=== PATIENT | female | born 1980 | race Two or more races ===

== ENCOUNTER 2021-09-18 12:21 | Emergency (ER) | payer SELFPAY ==
[2021-09-18 13:24] VITALS: BP 143/82; PULSE 88; TEMP 97.8; BMI 38.6
== END 2021-09-18 14:05 | disposition left against medical advice (07) ==
LOC: JER 12:21
DX: R06.02 Shortness of breath (principal)
CPT/HCPCS: 99281-25

== ENCOUNTER 2022-11-14 08:48 | Observation (INO) | payer OTHER ==
[2022-11-14 09:40] LABS: BASO % 0.9 % (0-2.0); EOS % 0.5 % (0-4.5); HEMATOCRIT 34.5 % (32.4-45.2); HEMOGLOBIN 11.1 GM/dL (10.7-15.3); LYMPH % 21.4 % (8-40); MCH 28.1 pg (25.7-33.7); MCHC 32.2 g/dl (32.0-36.0); MEAN CELL VOLUME 87.2 fl (80-96); MEAN PLT VOLUME 8.3 fl (7.5-11.1); MONO % 8.4 % (3.8-10.2); NEUT % 68.8 % (42.8-82.8); PLATELET COUNT 430 10^3/uL (134-434); RBC 3.96 M/mm3 (3.60-5.2); RDW 17.7 % (11.6-15.6)
[2022-11-14] MEDS ORDERED: ONDANSETRON *ODT* 4 MG TABLET SL ONE (09:47)
[2022-11-14 09:48] LABS: INR 1.17 (0.83-1.09); PROTHROMBIN TIME (PATIENT) 13.5 SEC (9.7-13.0)
[2022-11-14 09:50] LABS: ACTIVATED PTT 33.9 SECONDS (25.2-36.5)
[2022-11-14] MEDS ORDERED: ONDANSETRON *ODT* 4 MG TABLET ONE (09:51)
[2022-11-14 10:02] LABS: CALCIUM 8.9 mg/dL (8.5-10.1)
[2022-11-14 10:03] LABS: ALBUMIN 3.6 g/dl (3.4-5.0)
[2022-11-14 10:06] LABS: CREATININE 0.7 mg/dL (0.55-1.3)
[2022-11-14 10:08] LABS: TOT PROT 7.5 g/dl (6.4-8.2)
[2022-11-14 10:09] LABS: BILIRUBIN,TOTAL 0.5 mg/dL (0.2-1)
[2022-11-14] MEDS ORDERED: ALPRAZolam 0.25 MG TABLET PO ONE (11:19)
[2022-11-14] MEDS ORDERED: ALPRAZolam 0.25 MG TABLET ONE (11:27)
[2022-11-14 12:08] LABS: MAGNESIUM 2.3 mg/dL (1.8-2.4)
[2022-11-14 12:11] LABS: PHOSPHOROUS 2.6 mg/dL (2.5-4.9)
[2022-11-14] MEDS ORDERED: oxyCODONE HCL 5 MG TABLET ONE ×2 (14:17→14:31)
[2022-11-14] MEDS ORDERED: ENOXAPARIN NA (PORCINE) 100 MG/1 ML DISP.SYRIN SQ ONE (14:17)
[2022-11-14] MEDS: oxyCODONE HCL 5 MG TABLET PO PRN ×3 (14:23→23:08)
[2022-11-14] MEDS: ENOXAPARIN NA (PORCINE) 100 MG/1 ML DISP.SYRIN SQ SCH ×2 (14:24→22:18)
[2022-11-14 14:37] LABS: EPI CELLS 7 /uL (0-25.1); HYALINE CASTS 0 /uL (0-3.1); PH,URINE 7.5 (5.0-8.0); URINE APPEARANCE CLEAR; URINE BACTERIA 1 /uL (0-1359); URINE BILIRUBIN NEGATIVE (NEGATIVE); URINE COLOR YELLOW; URINE GLUCOSE (UA) NEGATIVE (NEGATIVE); URINE KETONE 1+ (NEGATIVE); URINE LEUK ESTERASE NEGATIVE (NEGATIVE); URINE NITRITE NEGATIVE (NEGATIVE); URINE PROTEIN TRACE (NEGATIVE); URINE RBC 576 /uL (0-23.9); URINE WBC 4 /uL (0-25.8)
[2022-11-14] MEDS ORDERED: WARFARIN NA 10 MG TABLET PO ONE (18:00)
[2022-11-14 18:43] VITALS: BMI 45.8
[2022-11-14] MEDS: GABAPENTIN 300 MG CAPSULE PO SCH ×2 (18:47→22:18)
[2022-11-14] MEDS: CYCLOBENZAPRINE HCL 10 MG TABLET (FP) PO PRN ×2 (18:48→22:18)
[2022-11-14] MEDS ORDERED: GABAPENTIN 300 MG CAPSULE PO SCH (22:00)
[2022-11-14] MEDS: ATORVASTATIN CA 40 MG TABLET (FP) PO SCH (22:18)
[2022-11-14] MEDS: ALPRAZolam 1 MG TABLET PO PRN (22:29)
[2022-11-15] MEDS: oxyCODONE HCL 5 MG TABLET PO PRN ×4 (03:39→18:41)
[2022-11-15] MEDS: GABAPENTIN 300 MG CAPSULE PO SCH ×4 (09:33→22:12)
[2022-11-15] MEDS: CYCLOBENZAPRINE HCL 10 MG TABLET (FP) PO PRN ×2 (09:42→22:12)
[2022-11-15] MEDS: ENOXAPARIN NA (PORCINE) 100 MG/1 ML DISP.SYRIN SQ SCH (10:56)
[2022-11-15] MEDS: ALPRAZolam 1 MG TABLET PO PRN (11:03)
[2022-11-15 11:10] LABS: BASO % 0.5 % (0-2.0); EOS % 2.5 % (0-4.5); HEMATOCRIT 32.1 % (32.4-45.2); HEMOGLOBIN 10.6 GM/dL (10.7-15.3); LYMPH % 21.5 % (8-40); MCH 28.7 pg (25.7-33.7); MCHC 33.1 g/dl (32.0-36.0); MEAN CELL VOLUME 86.7 fl (80-96); MEAN PLT VOLUME 8.3 fl (7.5-11.1); MONO % 7.7 % (3.8-10.2); NEUT % 67.8 % (42.8-82.8); PLATELET COUNT 385 10^3/uL (134-434); RDW 17.8 % (11.6-15.6)
[2022-11-15 11:29] LABS: CALCIUM 8.6 mg/dL (8.5-10.1)
[2022-11-15 11:30] LABS: BLOOD UREA NITROGEN 10.5 mg/dL (7-18)
[2022-11-15 11:33] LABS: CREATININE 0.8 mg/dL (0.55-1.3)
[2022-11-15] MEDS ORDERED: ENOXAPARIN NA (PORCINE) 100 MG/1 ML DISP.SYRIN SQ SCH (18:27)
[2022-11-15] MEDS ORDERED: WARFARIN NA 5 MG TABLET PO ONE (18:27)
[2022-11-15] MEDS: ATORVASTATIN CA 40 MG TABLET (FP) PO SCH (22:11)
[2022-11-15] MEDS: ENOXAPARIN NA (PORCINE) 120 MG/0.8 ML DISP.SYRIN SQ SCH (22:13)
[2022-11-16] MEDS: oxyCODONE HCL 5 MG TABLET PO PRN ×4 (05:32→21:01)
[2022-11-16] MEDS: CYCLOBENZAPRINE HCL 10 MG TABLET (FP) PO PRN ×3 (05:32→21:03)
[2022-11-16] MEDS ORDERED: DEXTROSE 50%-WATER 25 GM/50 ML DISP.SYRIN ONE (10:07)
[2022-11-16] MEDS ORDERED: DEXTROSE 50%-WATER - 25 GM/50 ML VIAL IVPUSH ONE (10:32)
[2022-11-16] MEDS ORDERED: DEXTROSE 50%-WATER 25 GM/50 ML DISP.SYRIN IVPUSH ONE (10:37)
[2022-11-16] MEDS ORDERED: DEXTROSE 50%-WATER 25 GM/50 ML DISP.SYRIN IVPUSH PRN (10:43)
[2022-11-16] MEDS: GABAPENTIN 300 MG CAPSULE PO SCH ×4 (11:03→21:03)
[2022-11-16] MEDS: ENOXAPARIN NA (PORCINE) 120 MG/0.8 ML DISP.SYRIN SQ SCH ×2 (11:03→21:03)
[2022-11-16 11:38] LABS: HEMATOCRIT 31.8 % (32.4-45.2); HEMOGLOBIN 10.5 GM/dL (10.7-15.3); MCH 28.8 pg (25.7-33.7); MCHC 32.9 g/dl (32.0-36.0); MEAN CELL VOLUME 87.6 fl (80-96); MEAN PLT VOLUME 8.6 fl (7.5-11.1); PLATELET COUNT 372 10^3/uL (134-434); RBC 3.63 M/mm3 (3.60-5.2); RDW 17.2 % (11.6-15.6); WHITE BLOOD COUNT 7.4 K/mm3 (4.0-10.0)
[2022-11-16 11:45] LABS: INR 1.14 (0.83-1.09); PROTHROMBIN TIME (PATIENT) 13.2 SEC (9.7-13.0)
[2022-11-16 11:48] LABS: ACTIVATED PTT 36.4 SECONDS (25.2-36.5)
[2022-11-16 12:07] LABS: ALBUMIN 3.1 g/dl (3.4-5.0); BLOOD UREA NITROGEN 11.7 mg/dL (7-18)
[2022-11-16 12:08] LABS: CALCIUM 8.2 mg/dL (8.5-10.1)
[2022-11-16 12:09] LABS: CREATININE 0.7 mg/dL (0.55-1.3)
[2022-11-16 12:11] LABS: BILIRUBIN,TOTAL 0.2 mg/dL (0.2-1); TOT PROT 6.4 g/dl (6.4-8.2)
[2022-11-16] MEDS: ALPRAZolam 1 MG TABLET PO PRN (13:42)
[2022-11-16] MEDS: ATORVASTATIN CA 40 MG TABLET (FP) PO SCH (21:04)
[2022-11-17] MEDS: oxyCODONE HCL 5 MG TABLET PO PRN ×3 (01:15→18:30)
[2022-11-17] MEDS: GABAPENTIN 300 MG CAPSULE PO SCH ×4 (09:48→21:39)
[2022-11-17] MEDS: ENOXAPARIN NA (PORCINE) 120 MG/0.8 ML DISP.SYRIN SQ SCH ×2 (09:48→21:38)
[2022-11-17] MEDS: CYCLOBENZAPRINE HCL 10 MG TABLET (FP) PO PRN ×3 (09:52→23:00)
[2022-11-17] MEDS: ALPRAZolam 1 MG TABLET PO PRN (09:59)
[2022-11-17] MEDS: SENNOSIDES/DOCUSATE COMBO (SENNA PLUS) TABLET (UD) PO SCH ×2 (10:16→21:39)
[2022-11-17] MEDS ORDERED: oxyCODONE HCL 5 MG TABLET PO PRN ×2 (11:32→13:35)
[2022-11-17 11:43] LABS: HEMATOCRIT 33.1 % (32.4-45.2); HEMOGLOBIN 10.8 GM/dL (10.7-15.3); MCH 28.5 pg (25.7-33.7); MCHC 32.6 g/dl (32.0-36.0); MEAN CELL VOLUME 87.4 fl (80-96); MEAN PLT VOLUME 9.3 fl (7.5-11.1); PLATELET COUNT 328 10^3/uL (134-434); RBC 3.79 M/mm3 (3.60-5.2); RDW 16.9 % (11.6-15.6); WHITE BLOOD COUNT 6.4 K/mm3 (4.0-10.0)
[2022-11-17 12:07] LABS: ALBUMIN 3.1 g/dl (3.4-5.0); BLOOD UREA NITROGEN 11.1 mg/dL (7-18)
[2022-11-17 12:10] LABS: CREATININE 0.7 mg/dL (0.55-1.3)
[2022-11-17 12:11] LABS: BILIRUBIN,TOTAL 0.2 mg/dL (0.2-1); TOT PROT 6.2 g/dl (6.4-8.2)
[2022-11-17] MEDS: ATORVASTATIN CA 40 MG TABLET (FP) PO SCH (21:38)
[2022-11-18] MEDS: INSULIN SLIDING SCALE (NOVOLOG) 1 VIAL SQ SCH ×3 (07:05→16:29)
[2022-11-18] MEDS: oxyCODONE HCL 5 MG TABLET PO PRN ×3 (07:40→22:16)
[2022-11-18] MEDS: CYCLOBENZAPRINE HCL 10 MG TABLET (FP) PO PRN ×2 (07:44→17:33)
[2022-11-18] MEDS: GABAPENTIN 300 MG CAPSULE PO SCH ×4 (09:24→22:09)
[2022-11-18] MEDS: ENOXAPARIN NA (PORCINE) 120 MG/0.8 ML DISP.SYRIN SQ SCH ×2 (09:24→22:09)
[2022-11-18] MEDS: SENNOSIDES/DOCUSATE COMBO (SENNA PLUS) TABLET (UD) PO SCH ×2 (09:26→22:09)
[2022-11-18 12:03] LABS: INR 1.17 (0.83-1.09); PROTHROMBIN TIME (PATIENT) 13.5 SEC (9.7-13.0)
[2022-11-18] MEDS: ALPRAZolam 1 MG TABLET PO PRN (12:27)
[2022-11-18] MEDS ORDERED: ONDANSETRON 4 MG/2 ML VIAL IVPUSH ONE (16:26)
[2022-11-18] MEDS: ATORVASTATIN CA 40 MG TABLET (FP) PO SCH (22:09)
[2022-11-19] MEDS: oxyCODONE HCL 5 MG TABLET PO PRN ×4 (04:29→21:46)
[2022-11-19] MEDS: CYCLOBENZAPRINE HCL 10 MG TABLET (FP) PO PRN (04:29)
[2022-11-19] MEDS: INSULIN SLIDING SCALE (NOVOLOG) 1 VIAL SQ SCH ×3 (06:49→16:44)
[2022-11-19] MEDS: GABAPENTIN 300 MG CAPSULE PO SCH ×3 (11:19→21:43)
[2022-11-19] MEDS: ALPRAZolam 1 MG TABLET PO PRN (11:19)
[2022-11-19] MEDS: ENOXAPARIN NA (PORCINE) 120 MG/0.8 ML DISP.SYRIN SQ SCH ×2 (11:19→21:44)
[2022-11-19] MEDS: SENNOSIDES/DOCUSATE COMBO (SENNA PLUS) TABLET (UD) PO SCH ×2 (11:20→21:44)
[2022-11-19 12:26] LABS: BASO % 0.8 % (0-2.0); EOS % 4.8 % (0-4.5); HEMATOCRIT 37.1 % (32.4-45.2); HEMOGLOBIN 12.1 GM/dL (10.7-15.3); LYMPH % 31.7 % (8-40); MCH 28.4 pg (25.7-33.7); MCHC 32.7 g/dl (32.0-36.0); MEAN CELL VOLUME 86.8 fl (80-96); MEAN PLT VOLUME 9.1 fl (7.5-11.1); MONO % 3.1 % (3.8-10.2); NEUT % 59.6 % (42.8-82.8); PLATELET COUNT 424 10^3/uL (134-434); RBC 4.27 M/mm3 (3.60-5.2); WHITE BLOOD COUNT 6.2 K/mm3 (4.0-10.0)
[2022-11-19 12:52] LABS: ALBUMIN 3.8 g/dl (3.4-5.0); BLOOD UREA NITROGEN 15.2 mg/dL (7-18); MAGNESIUM 2.3 mg/dL (1.8-2.4)
[2022-11-19 12:55] LABS: CREATININE 0.8 mg/dL (0.55-1.3); PHOSPHOROUS 3.9 mg/dL (2.5-4.9)
[2022-11-19 12:56] LABS: BILIRUBIN,TOTAL 0.2 mg/dL (0.2-1); TOT PROT 7.6 g/dl (6.4-8.2)
[2022-11-19] MEDS ORDERED: oxyCODONE HCL 5 MG TABLET PO PRN (17:28)
[2022-11-19] MEDS ORDERED: ALPRAZolam 1 MG TABLET PO PRN (17:28)
[2022-11-19] MEDS ORDERED: CYCLOBENZAPRINE HCL 10 MG TABLET (FP) PO PRN (17:28)
[2022-11-19] MEDS ORDERED: DEXTROSE 50%-WATER 25 GM/50 ML DISP.SYRIN IVPUSH PRN ×2 (17:28→19:48)
[2022-11-19] MEDS ORDERED: GABAPENTIN 300 MG CAPSULE PO SCH (18:00)
[2022-11-19] MEDS: ATORVASTATIN CA 40 MG TABLET (FP) PO SCH (21:44)
[2022-11-19] MEDS ORDERED: ENOXAPARIN NA (PORCINE) 120 MG/0.8 ML DISP.SYRIN SQ SCH (22:00)
[2022-11-19] MEDS ORDERED: ATORVASTATIN CA 40 MG TABLET (FP) PO SCH (22:00)
[2022-11-19] MEDS ORDERED: SENNOSIDES/DOCUSATE COMBO (SENNA PLUS) TABLET (UD) PO SCH (22:00)
[2022-11-20] MEDS: CYCLOBENZAPRINE HCL 10 MG TABLET (FP) PO PRN ×3 (06:06→22:21)
[2022-11-20] MEDS: oxyCODONE HCL 5 MG TABLET PO PRN ×4 (06:09→22:21)
[2022-11-20] MEDS: INSULIN SLIDING SCALE (NOVOLOG) 1 VIAL SQ SCH ×3 (06:10→16:29)
[2022-11-20] MEDS ORDERED: INSULIN SLIDING SCALE (NOVOLOG) 1 VIAL SQ SCH (07:00)
[2022-11-20] MEDS: GABAPENTIN 300 MG CAPSULE PO SCH ×4 (09:13→22:22)
[2022-11-20] MEDS: ALPRAZolam 1 MG TABLET PO PRN (09:16)
[2022-11-20] MEDS: ENOXAPARIN NA (PORCINE) 120 MG/0.8 ML DISP.SYRIN SQ SCH (09:18)
[2022-11-20] MEDS: SENNOSIDES/DOCUSATE COMBO (SENNA PLUS) TABLET (UD) PO SCH ×2 (09:20→22:22)
[2022-11-20] MEDS ORDERED: ONDANSETRON 4 MG/2 ML VIAL IVPUSH ONE (11:31)
[2022-11-20] MEDS: WARFARIN NA 7.5 MG TABLET PO SCH (22:20)
[2022-11-20] MEDS: ATORVASTATIN CA 40 MG TABLET (FP) PO SCH (22:21)
[2022-11-21] MEDS: oxyCODONE HCL 5 MG TABLET PO PRN ×2 (02:52→09:11)
[2022-11-21] MEDS: INSULIN SLIDING SCALE (NOVOLOG) 1 VIAL SQ SCH ×3 (06:30→17:47)
[2022-11-21] MEDS: GABAPENTIN 300 MG CAPSULE PO SCH ×4 (09:12→21:16)
[2022-11-21] MEDS: CYCLOBENZAPRINE HCL 10 MG TABLET (FP) PO PRN ×3 (09:15→21:19)
[2022-11-21 09:37] LABS: HEMATOCRIT 35.7 % (32.4-45.2); HEMOGLOBIN 11.5 GM/dL (10.7-15.3); MCHC 32.2 g/dl (32.0-36.0); MEAN PLT VOLUME 8.9 fl (7.5-11.1); PLATELET COUNT 382 10^3/uL (134-434); RDW 16.6 % (11.6-15.6); WHITE BLOOD COUNT 6.9 K/mm3 (4.0-10.0)
[2022-11-21 09:49] LABS: INR 1.09 (0.83-1.09); PROTHROMBIN TIME (PATIENT) 12.6 SEC (9.7-13.0)
[2022-11-21 10:26] LABS: CALCIUM 9.1 mg/dL (8.5-10.1)
[2022-11-21 10:27] LABS: ALBUMIN 3.5 g/dl (3.4-5.0); BLOOD UREA NITROGEN 11.6 mg/dL (7-18)
[2022-11-21 10:29] LABS: CREATININE 0.8 mg/dL (0.55-1.3)
[2022-11-21 10:32] LABS: BILIRUBIN,TOTAL 0.2 mg/dL (0.2-1); TOT PROT 6.9 g/dl (6.4-8.2)
[2022-11-21] MEDS: ALPRAZolam 1 MG TABLET PO PRN (10:47)
[2022-11-21] MEDS: SENNOSIDES/DOCUSATE COMBO (SENNA PLUS) TABLET (UD) PO SCH (11:15)
[2022-11-21] MEDS: WARFARIN NA 7.5 MG TABLET PO SCH (21:00)
[2022-11-22] MEDS: ATORVASTATIN CA 40 MG TABLET (FP) PO SCH ×2 (00:44→23:04)
[2022-11-22] MEDS: SENNOSIDES/DOCUSATE COMBO (SENNA PLUS) TABLET (UD) PO SCH ×3 (00:44→23:08)
[2022-11-22] MEDS: oxyCODONE HCL 5 MG TABLET PO PRN ×5 (01:05→23:21)
[2022-11-22] MEDS: CYCLOBENZAPRINE HCL 10 MG TABLET (FP) PO PRN ×2 (05:52→23:05)
[2022-11-22] MEDS: INSULIN SLIDING SCALE (NOVOLOG) 1 VIAL SQ SCH ×3 (07:31→16:35)
[2022-11-22] MEDS: GABAPENTIN 300 MG CAPSULE PO SCH ×4 (09:53→23:05)
[2022-11-22] MEDS: ALPRAZolam 1 MG TABLET PO PRN (13:06)
[2022-11-22] MEDS ORDERED: WARFARIN NA 10 MG TABLET PO ONE (18:00)
[2022-11-22] MEDS ORDERED: WARFARIN NA 5 MG TABLET PO SCH (18:00)
[2022-11-22] MEDS ORDERED: WARFARIN NA 10 MG TABLET PO SCH (18:00)
[2022-11-23] MEDS ORDERED: ALPRAZolam 1 MG TABLET PO ONE (03:49)
[2022-11-23] MEDS ORDERED: ALPRAZolam 0.25 MG TABLET PO ONE (03:49)
[2022-11-23] MEDS: oxyCODONE HCL 5 MG TABLET PO PRN ×4 (03:49→21:24)
[2022-11-23] MEDS: INSULIN SLIDING SCALE (NOVOLOG) 1 VIAL SQ SCH ×3 (07:12→16:56)
[2022-11-23] MEDS: GABAPENTIN 300 MG CAPSULE PO SCH ×4 (10:13→21:23)
[2022-11-23] MEDS: SENNOSIDES/DOCUSATE COMBO (SENNA PLUS) TABLET (UD) PO SCH ×2 (10:13→21:25)
[2022-11-23 10:36] LABS: ALBUMIN 3.6 g/dl (3.4-5.0); CALCIUM 8.9 mg/dL (8.5-10.1)
[2022-11-23 10:37] LABS: BLOOD UREA NITROGEN 13.4 mg/dL (7-18)
[2022-11-23 10:40] LABS: CREATININE 0.8 mg/dL (0.55-1.3)
[2022-11-23 10:42] LABS: BILIRUBIN,TOTAL 0.2 mg/dL (0.2-1); TOT PROT 7.1 g/dl (6.4-8.2)
[2022-11-23 10:58] LABS: HEMATOCRIT 35.3 % (32.4-45.2); HEMOGLOBIN 11.4 GM/dL (10.7-15.3); MCH 28.2 pg (25.7-33.7); MCHC 32.2 g/dl (32.0-36.0); MEAN CELL VOLUME 87.7 fl (80-96); MEAN PLT VOLUME 9.1 fl (7.5-11.1); PLATELET COUNT 348 10^3/uL (134-434); RBC 4.03 M/mm3 (3.60-5.2); RDW 16.9 % (11.6-15.6); WHITE BLOOD COUNT 6.9 K/mm3 (4.0-10.0)
[2022-11-23 12:52] LABS: INR 1.31 (0.83-1.09); PROTHROMBIN TIME (PATIENT) 15.2 SEC (9.7-13.0)
[2022-11-23] MEDS: ALPRAZolam 1 MG TABLET PO PRN (16:55)
[2022-11-23] MEDS: WARFARIN NA 5 MG TABLET PO SCH (17:00)
[2022-11-23] MEDS: CYCLOBENZAPRINE HCL 10 MG TABLET (FP) PO PRN (21:23)
[2022-11-23] MEDS: ATORVASTATIN CA 40 MG TABLET (FP) PO SCH (21:25)
[2022-11-24] MEDS: oxyCODONE HCL 5 MG TABLET PO PRN ×4 (02:18→21:42)
[2022-11-24] MEDS: INSULIN SLIDING SCALE (NOVOLOG) 1 VIAL SQ SCH ×3 (06:54→18:14)
[2022-11-24] MEDS: SENNOSIDES/DOCUSATE COMBO (SENNA PLUS) TABLET (UD) PO SCH ×3 (10:24→23:17)
[2022-11-24] MEDS: GABAPENTIN 300 MG CAPSULE PO SCH ×4 (10:24→21:43)
[2022-11-24] MEDS: ALPRAZolam 1 MG TABLET PO PRN (10:32)
[2022-11-24 12:32] LABS: BASO % 0.6 % (0-2.0); EOS % 2.8 % (0-4.5); HEMATOCRIT 34.7 % (32.4-45.2); HEMOGLOBIN 11.2 GM/dL (10.7-15.3); LYMPH % 17.6 % (8-40); MCH 27.9 pg (25.7-33.7); MCHC 32.2 g/dl (32.0-36.0); MEAN CELL VOLUME 86.7 fl (80-96); MEAN PLT VOLUME 8.9 fl (7.5-11.1); MONO % 9.8 % (3.8-10.2); NEUT % 69.2 % (42.8-82.8); PLATELET COUNT 368 10^3/uL (134-434); RBC 4.01 M/mm3 (3.60-5.2); RDW 16.4 % (11.6-15.6); WHITE BLOOD COUNT 8.5 K/mm3 (4.0-10.0)
[2022-11-24 12:36] LABS: INR 1.4 (0.83-1.09); PROTHROMBIN TIME (PATIENT) 16.2 SEC (9.7-13.0)
[2022-11-24 13:18] LABS: CALCIUM 9.5 mg/dL (8.5-10.1)
[2022-11-24 13:19] LABS: ALBUMIN 3.5 g/dl (3.4-5.0); BLOOD UREA NITROGEN 12.7 mg/dL (7-18)
[2022-11-24 13:20] LABS: CREATININE 0.7 mg/dL (0.55-1.3)
[2022-11-24 13:22] LABS: BILIRUBIN,TOTAL 0.4 mg/dL (0.2-1); TOT PROT 7.1 g/dl (6.4-8.2)
[2022-11-24] MEDS: CYCLOBENZAPRINE HCL 10 MG TABLET (FP) PO PRN (15:24)
[2022-11-24 18:06] LABS: DRVVT - 38.1 sec (0.0-47.0); HEXAGONAL PHASE PHOSPHOLIPID 6 sec (0-11)
[2022-11-24] MEDS: WARFARIN NA 5 MG TABLET PO SCH (18:14)
[2022-11-24] MEDS: ATORVASTATIN CA 40 MG TABLET (FP) PO SCH (21:43)
[2022-11-25] MEDS: CYCLOBENZAPRINE HCL 10 MG TABLET (FP) PO PRN ×2 (03:29→13:31)
[2022-11-25] MEDS: oxyCODONE HCL 5 MG TABLET PO PRN ×4 (03:31→21:59)
[2022-11-25] MEDS: ALPRAZolam 1 MG TABLET PO PRN (05:34)
[2022-11-25] MEDS: INSULIN SLIDING SCALE (NOVOLOG) 1 VIAL SQ SCH ×3 (08:09→17:27)
[2022-11-25] MEDS: GABAPENTIN 300 MG CAPSULE PO SCH ×4 (10:37→21:58)
[2022-11-25] MEDS: SENNOSIDES/DOCUSATE COMBO (SENNA PLUS) TABLET (UD) PO SCH ×2 (10:38→22:01)
[2022-11-25 11:56] LABS: INR 1.44 (0.83-1.09); PROTHROMBIN TIME (PATIENT) 16.7 SEC (9.7-13.0)
[2022-11-25] MEDS ORDERED: WARFARIN NA 7.5 MG TABLET PO SCH (18:00)
[2022-11-25] MEDS ORDERED: WARFARIN NA 10 MG TABLET PO SCH (18:00)
[2022-11-25] MEDS ORDERED: WARFARIN NA 10 MG, WARFARIN NA 2.5 MG PO SCH (18:00)
[2022-11-25] MEDS: ATORVASTATIN CA 40 MG TABLET (FP) PO SCH (21:58)
[2022-11-26] MEDS: ALPRAZolam 1 MG TABLET PO PRN (01:13)
[2022-11-26] MEDS: oxyCODONE HCL 5 MG TABLET PO PRN ×5 (05:50→21:57)
[2022-11-26] MEDS: INSULIN SLIDING SCALE (NOVOLOG) 1 VIAL SQ SCH ×2 (08:24→17:45)
[2022-11-26] MEDS: GABAPENTIN 300 MG CAPSULE PO SCH ×4 (09:46→21:57)
[2022-11-26] MEDS: SENNOSIDES/DOCUSATE COMBO (SENNA PLUS) TABLET (UD) PO SCH ×2 (09:46→21:57)
[2022-11-26] MEDS: CYCLOBENZAPRINE HCL 10 MG TABLET (FP) PO PRN (09:57)
[2022-11-26 11:53] LABS: INR 1.67 (0.83-1.09); PROTHROMBIN TIME (PATIENT) 19.3 SEC (9.7-13.0)
[2022-11-26 12:10] LABS: CHLORIDE 108 mmol/L (98-107); SODIUM 139 mmol/L (136-145)
[2022-11-26 12:11] LABS: CALCIUM 8.7 mg/dL (8.5-10.1)
[2022-11-26 12:12] LABS: ANION GAP 8 MMOL/L (8-16); CO2 23 mmol/L (21-32)
[2022-11-26 12:15] LABS: CREATININE 0.8 mg/dL (0.55-1.3)
[2022-11-26 12:38] LABS: GLUCOSE,RANDOM 41 mg/dL (74-106)
[2022-11-26] MEDS ORDERED: WARFARIN NA 2.5 MG TABLET ONE (17:42)
[2022-11-26] MEDS: WARFARIN NA 2.5 MG TABLET PO ONE ×2 (17:43→18:08)
[2022-11-26] MEDS ORDERED: WARFARIN NA 10 MG, WARFARIN NA 2.5 MG PO SCH (18:00)
[2022-11-26] MEDS: ATORVASTATIN CA 40 MG TABLET (FP) PO SCH (21:57)
[2022-11-26] MEDS: CYCLOBENZAPRINE HCL 10 MG TABLET (FP) PO SCH (21:57)
[2022-11-27] MEDS: oxyCODONE HCL 5 MG TABLET PO PRN ×3 (04:26→14:42)
[2022-11-27] MEDS: ALPRAZolam 1 MG TABLET PO PRN (06:15)
[2022-11-27] MEDS: INSULIN SLIDING SCALE (NOVOLOG) 1 VIAL SQ SCH ×2 (06:16→16:17)
[2022-11-27 08:21] VITALS: PULSE 88
[2022-11-27] MEDS: CYCLOBENZAPRINE HCL 10 MG TABLET (FP) PO SCH (10:06)
[2022-11-27] MEDS: GABAPENTIN 300 MG CAPSULE PO SCH ×2 (10:06→14:17)
[2022-11-27] MEDS: SENNOSIDES/DOCUSATE COMBO (SENNA PLUS) TABLET (UD) PO SCH (10:16)
[2022-11-27 14:39] VITALS: BP 115/76; RESP 18; TEMP 98.1
== END 2022-11-27 16:51 ==
LOC: JER 08:48 → JERBED 10:44 → UNDOADMOB 12:56 → JERBED 17:02 → J4W 17:21 → J5S 11-19 17:19
PROVIDERS: ADMIT Internal Medicine; ATTEND Internal Medicine
PROC: 3E033GC Introduction of Other Therapeutic Substance into Peripheral Vein, Percutaneous Approach (ICD-10-PCS; principal; 2022-11-14)
PROC: 3E033GC Introduction of Other Therapeutic Substance into Peripheral Vein, Percutaneous Approach (ICD-10-PCS; 2022-11-14)
PROC: 3E023GC Introduction of Other Therapeutic Substance into Muscle, Percutaneous Approach (ICD-10-PCS; 2022-11-14)
PROC: 3E033GC Introduction of Other Therapeutic Substance into Peripheral Vein, Percutaneous Approach (ICD-10-PCS; 2022-11-14)
DX: L94.8 Other specified localized connective tissue disorders (principal); D68.61 Antiphospholipid syndrome; Z79.01 Long term (current) use of anticoagulants; G89.29 Other chronic pain; F41.9 Anxiety disorder, unspecified; Z86.73 Personal history of transient ischemic attack (TIA), and cerebral infarction without residual deficits; Z86.711 Personal history of pulmonary embolism; R09.89 Other specified symptoms and signs involving the circulatory and respiratory systems; G43.909 Migraine, unspecified, not intractable, without status migrainosus; Z88.5 Allergy status to narcotic agent; Z91.040 Latex allergy status; Z88.8 Allergy status to other drugs, medicaments and biological substances
CPT/HCPCS: 0241U-QW; 36415; 70450-TC; 70496-TC; 70498-TC; 70551-TC; 80048; 80053; 80061; 81003; 82550; 82947; 82962; 83036; 83525; 83735; 84100; 84439; 84443; 84484; 84703; 85025; 85027; 85610; 85613; 85730; 85732; 86850; 86900; 86901; 93005; 93010; 93306-TC; 93880-TC; 96372; 96374; 96375; 97116-GP; 97162-GP; 99285-25; C9803-CS; G0378; Q0162; U0003; U0005

== ENCOUNTER 2023-03-15 12:27 | Observation (INO) | payer OTHER ==
[2023-03-15 13:45] VITALS: BMI 44.4
[2023-03-15] MEDS ORDERED: oxyCODONE HCL 5 MG TABLET PO ONE (14:00)
[2023-03-15 14:02] LABS: BASO % 0.6 % (0-2.0); EOS % 2.8 % (0-4.5); HEMATOCRIT 33.2 % (32.4-45.2); HEMOGLOBIN 10.6 GM/dL (10.7-15.3); MCH 26.2 pg (25.7-33.7); MCHC 31.8 g/dl (32.0-36.0); MEAN CELL VOLUME 82.3 fl (80-96); MEAN PLT VOLUME 8.1 fl (7.5-11.1); MONO % 8.5 % (3.8-10.2); NEUT % 67.1 % (42.8-82.8); PLATELET COUNT 415 10^3/uL (134-434); RBC 4.03 M/mm3 (3.60-5.2); RDW 17.6 % (11.6-15.6); WHITE BLOOD COUNT 7.2 K/mm3 (4.0-10.0)
[2023-03-15 14:08] LABS: INR 2.22 (0.83-1.09); PROTHROMBIN TIME (PATIENT) 25.6 SEC (9.7-13.0)
[2023-03-15] MEDS ORDERED: oxyCODONE HCL 5 MG TABLET ONE (14:31)
[2023-03-15 14:37] LABS: ALBUMIN 3.3 g/dl (3.4-5.0); BILIRUBIN,TOTAL 0.7 mg/dL (0.2-1); BLOOD UREA NITROGEN 8.2 mg/dL (7-18); CALCIUM 9.1 mg/dL (8.5-10.1); CREATININE 0.8 mg/dL (0.55-1.3); POTASSIUM 4.3 mmol/L (3.5-5.1); TOT PROT 7.1 g/dl (6.4-8.2)
[2023-03-15] MEDS ORDERED: ACETAMINOPHEN 325 MG TABLET (FP) PO PRN (18:34)
[2023-03-15] MEDS ORDERED: NALOXONE HCL 0.4 MG/ML VIAL IVPUSH PRN (18:37)
[2023-03-15] MEDS ORDERED: ONDANSETRON *ODT* 4 MG TABLET SL PRN (18:47)
[2023-03-15] MEDS ORDERED: BISACODYL 10 MG SUPP.RECT RC PRN (18:47)
[2023-03-15] MEDS ORDERED: NALOXONE (NARCAN) HCL 4 MG/0.1 ML SPRAY NS PRN (18:47)
[2023-03-15] MEDS ORDERED: MAGNESIUM HYDROX 2400MG/30ML ORAL SUSPENSION 30 ML CUP PO PRN (18:47)
[2023-03-15] MEDS ORDERED: SODIUM PHOSPHATE/NA BIPHOS 133 ML ENEMA RC PRN (18:47)
[2023-03-15] MEDS ORDERED: diphenhydrAMINE HCL 25 MG CAPSULE (FP) PO PRN (18:47)
[2023-03-15] MEDS ORDERED: ALBUTEROL SO4 2.5/IPRATROPIUM 0.5 INH SOL 3 ML VIAL.NEB. NEB PRN (18:47)
[2023-03-15] MEDS: SENNOSIDES 8.6MG TABLET (FP) PO SCH ×2 (21:12→21:16)
[2023-03-15] MEDS: ATORVASTATIN CA 40 MG TABLET (FP) PO SCH (21:13)
[2023-03-15] MEDS: GABAPENTIN 300 MG CAPSULE PO SCH (21:13)
[2023-03-15] MEDS: oxyCODONE HCL 5 MG TABLET PO PRN (21:13)
[2023-03-15] MEDS: CYCLOBENZAPRINE HCL 10 MG TABLET (FP) PO PRN (21:13)
[2023-03-16] MEDS: oxyCODONE HCL 5 MG TABLET PO PRN ×5 (00:41→18:48)
[2023-03-16] MEDS: CYCLOBENZAPRINE HCL 10 MG TABLET (FP) PO PRN ×2 (06:38→14:54)
[2023-03-16 10:00] LABS: INR 1.87 (0.83-1.09); PROTHROMBIN TIME (PATIENT) 21.6 SEC (9.7-13.0)
[2023-03-16] MEDS ORDERED: ENOXAPARIN NA (PORCINE) 40 MG/0.4 ML DISP.SYRIN SQ SCH (10:00)
[2023-03-16] MEDS: SENNOSIDES 8.6MG TABLET (FP) PO SCH ×2 (10:46→21:25)
[2023-03-16] MEDS: ALPRAZolam 0.25 MG TABLET PO PRN (10:46)
[2023-03-16] MEDS: GABAPENTIN 300 MG CAPSULE PO SCH ×4 (10:46→21:24)
[2023-03-16] MEDS ORDERED: ACETAMINOPHEN/CAFFEINE/BUTALBITAL 1 TAB PO PRN (14:34)
[2023-03-16] MEDS ORDERED: WARFARIN NA 3 MG TABLET PO SCH (18:00)
[2023-03-16] MEDS ORDERED: RIMEGEPANT SULFATE 75 MG TAB.RAPDIS SL PRN (19:58)
[2023-03-16] MEDS: TOPIRAMATE 25 MG TABLET PO SCH ×2 (21:24→21:34)
[2023-03-16] MEDS: ATORVASTATIN CA 40 MG TABLET (FP) PO SCH (21:24)
[2023-03-16] MEDS: PRAMIPEXOLE DIHYDROCHLORIDE 0.125 MG TABLET PO SCH (21:25)
[2023-03-17] MEDS: oxyCODONE HCL 5 MG TABLET PO PRN ×5 (01:31→21:47)
[2023-03-17] MEDS: ALPRAZolam 0.25 MG TABLET PO PRN (08:20)
[2023-03-17] MEDS: GABAPENTIN 300 MG CAPSULE PO SCH ×3 (09:33→18:30)
[2023-03-17] MEDS: SENNOSIDES 8.6MG TABLET (FP) PO SCH ×2 (09:34→21:52)
[2023-03-17] MEDS: TOPIRAMATE 25 MG TABLET PO SCH ×2 (09:34→21:52)
[2023-03-17] MEDS: PRAMIPEXOLE DIHYDROCHLORIDE 0.125 MG TABLET PO SCH ×2 (09:36→21:52)
[2023-03-17 10:03] LABS: BASO % 0.9 % (0-2.0); HEMATOCRIT 32.3 % (32.4-45.2); HEMOGLOBIN 9.9 GM/dL (10.7-15.3); LYMPH % 20.5 % (8-40); MCH 25.9 pg (25.7-33.7); MCHC 30.6 g/dl (32.0-36.0); MEAN CELL VOLUME 84.8 fl (80-96); MEAN PLT VOLUME 8.9 fl (7.5-11.1); MONO % 6.6 % (3.8-10.2); PLATELET COUNT 433 10^3/uL (134-434); RDW 17.8 % (11.6-15.6); WHITE BLOOD COUNT 6.8 K/mm3 (4.0-10.0)
[2023-03-17 10:27] LABS: POTASSIUM 4.6 mmol/L (3.5-5.1)
[2023-03-17 10:28] LABS: CALCIUM 8.7 mg/dL (8.5-10.1)
[2023-03-17 10:29] LABS: ALBUMIN 3.1 g/dl (3.4-5.0); BLOOD UREA NITROGEN 8.9 mg/dL (7-18)
[2023-03-17 10:32] LABS: CREATININE 0.8 mg/dL (0.55-1.3)
[2023-03-17 10:34] LABS: BILIRUBIN,TOTAL 0.3 mg/dL (0.2-1); TOT PROT 6.7 g/dl (6.4-8.2)
[2023-03-17 13:28] LABS: INR 1.6 (0.83-1.09); PROTHROMBIN TIME (PATIENT) 18.5 SEC (9.7-13.0)
[2023-03-17] MEDS: CYCLOBENZAPRINE HCL 10 MG TABLET (FP) PO SCH (17:49)
[2023-03-17] MEDS: WARFARIN NA 3 MG TABLET PO SCH (18:30)
[2023-03-17] MEDS: ATORVASTATIN CA 40 MG TABLET (FP) PO SCH (21:46)
[2023-03-18] MEDS: oxyCODONE HCL 5 MG TABLET PO PRN ×5 (01:33→19:29)
[2023-03-18] MEDS: GABAPENTIN 300 MG CAPSULE PO SCH ×4 (06:06→19:29)
[2023-03-18] MEDS: CYCLOBENZAPRINE HCL 10 MG TABLET (FP) PO SCH ×3 (06:06→14:59)
[2023-03-18 09:46] LABS: BASO % 0.4 % (0-2.0); EOS % 3.1 % (0-4.5); HEMATOCRIT 32.9 % (32.4-45.2); HEMOGLOBIN 10.3 GM/dL (10.7-15.3); LYMPH % 19.4 % (8-40); MCH 26.5 pg (25.7-33.7); MCHC 31.3 g/dl (32.0-36.0); MEAN CELL VOLUME 84.5 fl (80-96); MEAN PLT VOLUME 8.9 fl (7.5-11.1); MONO % 2.4 % (3.8-10.2); NEUT % 74.7 % (42.8-82.8); PLATELET COUNT 422 10^3/uL (134-434); RBC 3.89 M/mm3 (3.60-5.2); RDW 18.1 % (11.6-15.6); WHITE BLOOD COUNT 7.4 K/mm3 (4.0-10.0)
[2023-03-18 09:49] LABS: INR 1.75 (0.83-1.09); PROTHROMBIN TIME (PATIENT) 20.2 SEC (9.7-13.0)
[2023-03-18 09:58] LABS: POTASSIUM 4.3 mmol/L (3.5-5.1)
[2023-03-18 10:04] LABS: ALBUMIN 3.2 g/dl (3.4-5.0); CALCIUM 8.5 mg/dL (8.5-10.1)
[2023-03-18 10:07] LABS: CREATININE 0.8 mg/dL (0.55-1.3)
[2023-03-18 10:09] LABS: BILIRUBIN,TOTAL 0.2 mg/dL (0.2-1); TOT PROT 6.7 g/dl (6.4-8.2)
[2023-03-18] MEDS: SENNOSIDES 8.6MG TABLET (FP) PO SCH ×2 (10:27→21:56)
[2023-03-18] MEDS: TOPIRAMATE 25 MG TABLET PO SCH ×2 (10:27→22:01)
[2023-03-18] MEDS: PRAMIPEXOLE DIHYDROCHLORIDE 0.125 MG TABLET PO SCH ×2 (10:28→22:01)
[2023-03-18] MEDS: WARFARIN NA 3 MG TABLET PO SCH (17:22)
[2023-03-18] MEDS: ATORVASTATIN CA 40 MG TABLET (FP) PO SCH (21:56)
[2023-03-18] MEDS: ALPRAZolam 0.25 MG TABLET PO PRN (23:55)
[2023-03-19] MEDS: oxyCODONE HCL 5 MG TABLET PO PRN ×5 (02:25→21:41)
[2023-03-19] MEDS: GABAPENTIN 300 MG CAPSULE PO SCH ×4 (06:18→21:40)
[2023-03-19] MEDS: CYCLOBENZAPRINE HCL 10 MG TABLET (FP) PO SCH ×3 (06:18→17:17)
[2023-03-19] MEDS: PRAMIPEXOLE DIHYDROCHLORIDE 0.125 MG TABLET PO SCH ×2 (09:20→21:41)
[2023-03-19] MEDS: TOPIRAMATE 25 MG TABLET PO SCH ×2 (09:20→21:41)
[2023-03-19] MEDS: SENNOSIDES 8.6MG TABLET (FP) PO SCH ×2 (09:20→21:42)
[2023-03-19 10:16] LABS: BASO % 0.9 % (0-2.0); EOS % 3.8 % (0-4.5); HEMATOCRIT 34.5 % (32.4-45.2); HEMOGLOBIN 10.7 GM/dL (10.7-15.3); LYMPH % 21.2 % (8-40); MEAN CELL VOLUME 83.9 fl (80-96); MEAN PLT VOLUME 8.9 fl (7.5-11.1); MONO % 9.9 % (3.8-10.2); NEUT % 64.2 % (42.8-82.8); PLATELET COUNT 430 10^3/uL (134-434); RBC 4.11 M/mm3 (3.60-5.2); WHITE BLOOD COUNT 7.1 K/mm3 (4.0-10.0)
[2023-03-19 10:31] LABS: POTASSIUM 4.1 mmol/L (3.5-5.1)
[2023-03-19 10:37] LABS: CALCIUM 8.9 mg/dL (8.5-10.1)
[2023-03-19 10:38] LABS: ALBUMIN 3.3 g/dl (3.4-5.0); BLOOD UREA NITROGEN 11.4 mg/dL (7-18)
[2023-03-19 10:41] LABS: CREATININE 0.7 mg/dL (0.55-1.3)
[2023-03-19 10:43] LABS: BILIRUBIN,TOTAL 0.4 mg/dL (0.2-1); TOT PROT 7.1 g/dl (6.4-8.2)
[2023-03-19 12:10] LABS: ERYTHROCYTE SEDIMENTATION RATE 37 mm/hr (0-20)
[2023-03-19] MEDS ORDERED: LORazepam 2 MG/ML SDV VIAL IVPUSH SCH (13:13)
[2023-03-19 17:45] LABS: INR 2.36 (0.83-1.09); PROTHROMBIN TIME (PATIENT) 27.1 SEC (9.7-13.0)
[2023-03-19 17:47] LABS: ACTIVATED PTT 45.3 SECONDS (25.2-36.5)
[2023-03-19] MEDS: WARFARIN NA 3 MG TABLET PO SCH (18:18)
[2023-03-19] MEDS: ATORVASTATIN CA 40 MG TABLET (FP) PO SCH (21:40)
[2023-03-20] MEDS: oxyCODONE HCL 5 MG TABLET PO PRN ×5 (02:41→21:46)
[2023-03-20] MEDS: CYCLOBENZAPRINE HCL 10 MG TABLET (FP) PO SCH ×5 (06:01→17:41)
[2023-03-20] MEDS: GABAPENTIN 300 MG CAPSULE PO SCH ×6 (06:01→21:45)
[2023-03-20 09:16] LABS: BASO % 0.6 % (0-2.0); EOS % 3.9 % (0-4.5); HEMATOCRIT 31.6 % (32.4-45.2); LYMPH % 22.6 % (8-40); MCH 25.9 pg (25.7-33.7); MCHC 31.7 g/dl (32.0-36.0); MEAN CELL VOLUME 81.8 fl (80-96); MEAN PLT VOLUME 8.1 fl (7.5-11.1); MONO % 7.6 % (3.8-10.2); NEUT % 65.3 % (42.8-82.8); PLATELET COUNT 407 10^3/uL (134-434); RBC 3.87 M/mm3 (3.60-5.2); RDW 18.1 % (11.6-15.6); WHITE BLOOD COUNT 7.4 K/mm3 (4.0-10.0)
[2023-03-20 09:21] LABS: INR 2.5 (0.83-1.09); PROTHROMBIN TIME (PATIENT) 28.7 SEC (9.7-13.0)
[2023-03-20 09:24] LABS: ACTIVATED PTT 44.8 SECONDS (25.2-36.5)
[2023-03-20 09:40] LABS: CALCIUM 8.1 mg/dL (8.5-10.1)
[2023-03-20 09:41] LABS: BLOOD UREA NITROGEN 14.4 mg/dL (7-18)
[2023-03-20 09:44] LABS: CREATININE 0.8 mg/dL (0.55-1.3)
[2023-03-20 09:45] LABS: BILIRUBIN,TOTAL 0.2 mg/dL (0.2-1); TOT PROT 6.7 g/dl (6.4-8.2)
[2023-03-20] MEDS: TOPIRAMATE 25 MG TABLET PO SCH ×2 (10:01→21:42)
[2023-03-20] MEDS: PRAMIPEXOLE DIHYDROCHLORIDE 0.125 MG TABLET PO SCH ×2 (10:01→21:45)
[2023-03-20] MEDS: SENNOSIDES 8.6MG TABLET (FP) PO SCH ×3 (10:01→21:48)
[2023-03-20 13:27] LABS: POTASSIUM 3.9 mmol/L (3.5-5.1)
[2023-03-20 13:28] LABS: CALCIUM 8.7 mg/dL (8.5-10.1)
[2023-03-20 13:29] LABS: BLOOD UREA NITROGEN 13.3 mg/dL (7-18)
[2023-03-20 13:32] LABS: CREATININE 0.9 mg/dL (0.55-1.3)
[2023-03-20] MEDS: WARFARIN NA 3 MG TABLET PO SCH (17:43)
[2023-03-20] MEDS: ATORVASTATIN CA 40 MG TABLET (FP) PO SCH (21:42)
[2023-03-21] MEDS: oxyCODONE HCL 5 MG TABLET PO PRN ×5 (03:16→18:58)
[2023-03-21] MEDS: CYCLOBENZAPRINE HCL 10 MG TABLET (FP) PO SCH ×3 (06:18→14:57)
[2023-03-21] MEDS: GABAPENTIN 300 MG CAPSULE PO SCH ×4 (06:18→18:58)
[2023-03-21] MEDS: ALPRAZolam 0.25 MG TABLET PO PRN (08:30)
[2023-03-21] MEDS: TOPIRAMATE 25 MG TABLET PO SCH (09:11)
[2023-03-21] MEDS: SENNOSIDES 8.6MG TABLET (FP) PO SCH (09:11)
[2023-03-21] MEDS: PRAMIPEXOLE DIHYDROCHLORIDE 0.125 MG TABLET PO SCH (09:11)
[2023-03-21 09:53] LABS: BASO % 0.7 % (0-2.0); EOS % 3.9 % (0-4.5); HEMATOCRIT 33.3 % (32.4-45.2); HEMOGLOBIN 10.6 GM/dL (10.7-15.3); LYMPH % 24.9 % (8-40); MCH 26.1 pg (25.7-33.7); MCHC 31.7 g/dl (32.0-36.0); MEAN CELL VOLUME 82.3 fl (80-96); MEAN PLT VOLUME 8.4 fl (7.5-11.1); MONO % 5.9 % (3.8-10.2); NEUT % 64.6 % (42.8-82.8); PLATELET COUNT 388 10^3/uL (134-434); RBC 4.05 M/mm3 (3.60-5.2); RDW 18.3 % (11.6-15.6); WHITE BLOOD COUNT 6.6 K/mm3 (4.0-10.0)
[2023-03-21 09:54] LABS: INR 2.9 (0.83-1.09); PROTHROMBIN TIME (PATIENT) 33.3 SEC (9.7-13.0)
[2023-03-21 09:57] LABS: ACTIVATED PTT 45.6 SECONDS (25.2-36.5)
[2023-03-21 10:34] LABS: POTASSIUM 3.9 mmol/L (3.5-5.1)
[2023-03-21 10:37] LABS: ALBUMIN 3.2 g/dl (3.4-5.0); CALCIUM 8.5 mg/dL (8.5-10.1)
[2023-03-21 10:38] LABS: BLOOD UREA NITROGEN 15.7 mg/dL (7-18)
[2023-03-21 10:40] LABS: CREATININE 0.8 mg/dL (0.55-1.3)
[2023-03-21 10:41] VITALS: PULSE 95; RESP 20
[2023-03-21 10:42] LABS: BILIRUBIN,TOTAL 0.3 mg/dL (0.2-1); TOT PROT 7.3 g/dl (6.4-8.2)
[2023-03-21 14:50] VITALS: BP 114/76; TEMP 97.6
[2023-03-21] MEDS: WARFARIN NA 3 MG TABLET PO SCH (17:04)
== END 2023-03-21 21:56 ==
LOC: JER 12:27 → UNDOADMOB 17:08 → JERBED 17:08 → INTOOBSV 17:08 → JERBED 18:52 → J6S 18:52 → JERBED 19:45 → J6S 03-18 10:26
PROVIDERS: ADMIT Internal Medicine; ATTEND Student in an Organized Health Care Education/Training Program
PROC: 3E033NZ Introduction of Analgesics, Hypnotics, Sedatives into Peripheral Vein, Percutaneous Approach (ICD-10-PCS; principal; 2023-03-15)
DX: G43.909 Migraine, unspecified, not intractable, without status migrainosus (principal); D68.61 Antiphospholipid syndrome; Z79.01 Long term (current) use of anticoagulants; L94.9 Localized connective tissue disorder, unspecified; Z86.711 Personal history of pulmonary embolism; F11.20 Opioid dependence, uncomplicated; Z86.73 Personal history of transient ischemic attack (TIA), and cerebral infarction without residual deficits; F41.9 Anxiety disorder, unspecified; Z91.040 Latex allergy status; Z88.5 Allergy status to narcotic agent; E66.01 Morbid (severe) obesity due to excess calories; Z68.42 Body mass index [BMI] 45.0-49.9, adult; G89.29 Other chronic pain
CPT/HCPCS: 36415; 70450-TC; 70470-TC; 80048; 80053; 82962; 84703; 85025; 85610; 85651; 85730; 86038; 86140; 93005; 93010; 94010; 96374; 97116-GP; 97162-GP; 99285-25; G0378; Q9967

== ENCOUNTER 2023-03-22 00:08 | Observation (INO) | payer OTHER ==
[2023-03-22 00:20] VITALS: BMI 43.8
[2023-03-22 01:42] LABS: INR 2.73 (0.83-1.09); PROTHROMBIN TIME (PATIENT) 31.4 SEC (9.7-13.0)
[2023-03-22 01:43] LABS: BASO % 0.5 % (0-2.0); HEMATOCRIT 36.5 % (32.4-45.2); HEMOGLOBIN 11.5 GM/dL (10.7-15.3); LYMPH % 21.9 % (8-40); MCH 25.9 pg (25.7-33.7); MCHC 31.4 g/dl (32.0-36.0); MEAN CELL VOLUME 82.3 fl (80-96); MEAN PLT VOLUME 8.5 fl (7.5-11.1); MONO % 5.5 % (3.8-10.2); NEUT % 68.1 % (42.8-82.8); PLATELET COUNT 436 10^3/uL (134-434); RBC 4.43 M/mm3 (3.60-5.2); WHITE BLOOD COUNT 7.9 K/mm3 (4.0-10.0)
[2023-03-22 01:45] LABS: ACTIVATED PTT 49.5 SECONDS (25.2-36.5)
[2023-03-22 02:00] LABS: POTASSIUM 4.8 mmol/L (3.5-5.1)
[2023-03-22 02:02] LABS: CALCIUM 8.4 mg/dL (8.5-10.1)
[2023-03-22 02:03] LABS: ALBUMIN 3.4 g/dl (3.4-5.0); BLOOD UREA NITROGEN 14.8 mg/dL (7-18)
[2023-03-22 02:06] LABS: CREATININE 0.9 mg/dL (0.55-1.3)
[2023-03-22 02:08] LABS: TOT PROT 7.7 g/dl (6.4-8.2)
[2023-03-22 02:09] LABS: BILIRUBIN,TOTAL 0.3 mg/dL (0.2-1)
[2023-03-22] MEDS ORDERED: NALOXONE HCL 4 MG NS PRN (04:23)
[2023-03-22] MEDS ORDERED: MAGNESIUM HYDROX 2400MG/30ML ORAL SUSPENSION 30 ML CUP PO PRN (04:23)
[2023-03-22] MEDS ORDERED: ONDANSETRON 4 MG TABLET PO PRN (04:23)
[2023-03-22] MEDS ORDERED: BISACODYL 10 MG SUPP.RECT RC PRN (04:23)
[2023-03-22] MEDS ORDERED: ALBUTEROL SO4 2.5/IPRATROPIUM 0.5 INH SOL 3 ML VIAL.NEB. NEB PRN (04:23)
[2023-03-22] MEDS ORDERED: SODIUM PHOSPHATE/NA BIPHOS 133 ML ENEMA RC PRN (04:23)
[2023-03-22] MEDS ORDERED: diphenhydrAMINE HCL 25 MG CAPSULE (FP) PO PRN (04:23)
[2023-03-22] MEDS ORDERED: CYCLOBENZAPRINE HCL 10 MG TABLET (FP) PO PRN (04:23)
[2023-03-22] MEDS ORDERED: ACETAMINOPHEN 1000 MG/100 ML BAG IVPB PRN (04:26)
[2023-03-22] MEDS ORDERED: oxyCODONE HCL 5 MG TABLET PO PRN (04:39)
[2023-03-22] MEDS ORDERED: oxyCODONE HCL 5 MG TABLET ONE (04:41)
[2023-03-22] MEDS ORDERED: ALPRAZolam 0.25 MG TABLET PO PRN (04:44)
[2023-03-22 06:29] VITALS: RESP 18
[2023-03-22] MEDS ORDERED: PRAMIPEXOLE DIHYDROCHLORIDE 0.125 MG TABLET PO SCH (10:00)
[2023-03-22] MEDS ORDERED: oxyCODONE HCL 5 MG TABLET PO ONE (10:42)
[2023-03-22] MEDS: GABAPENTIN 300 MG CAPSULE PO SCH ×3 (10:59→13:59)
[2023-03-22] MEDS: TOPIRAMATE 25 MG TABLET PO SCH ×2 (10:59→11:03)
[2023-03-22] MEDS: SENNOSIDES 8.6MG TABLET (FP) PO SCH ×2 (10:59→11:03)
[2023-03-22 14:48] VITALS: BP 99/64; PULSE 96; TEMP 97.7
[2023-03-22] MEDS ORDERED: WARFARIN NA 3 MG TABLET PO SCH (18:00)
[2023-03-22] MEDS ORDERED: ATORVASTATIN CA 40 MG TABLET (FP) PO SCH (22:00)
== END 2023-03-22 15:04 ==
LOC: JER 00:08 → UNDOADMOB 00:38 → INTOOBSV 00:38 → JERBED 00:38 → OBSVTOIN 04:19 → INTOOBSV 04:19 → JERBED 04:58 → J7W 04:58 → JERBED 10:18
PROVIDERS: ADMIT Internal Medicine; ATTEND Internal Medicine
DX: D68.61 Antiphospholipid syndrome (principal); L94.9 Localized connective tissue disorder, unspecified; Z79.01 Long term (current) use of anticoagulants; Z86.711 Personal history of pulmonary embolism; Z86.73 Personal history of transient ischemic attack (TIA), and cerebral infarction without residual deficits; Z91.040 Latex allergy status; Z88.5 Allergy status to narcotic agent
CPT/HCPCS: 36415; 80053; 82962; 85025; 85610; 85730; 93005; 93010; 99285-25; G0378